=== PATIENT | male | born 1965 | race Caucasian/White ===

== ENCOUNTER 2020-04-19 17:49 | Emergency (ER) | payer SELFPAY ==
[~2020-04-19] VITALS: Ht 175.2 cm; Wt 86.2 kg
[~2020-04-19 17:49] MED LIST: COMBIVENT1 ARO IH
[2020-04-19] MEDS ORDERED: SEPTDS PO (21:18)
[2020-04-19] MEDS ORDERED: KEFLEX500 M1 PO (21:18)
== END 2020-04-19 21:53 | disposition home or self-care (01) ==
LOC: ED 17:49
DX: S62.631A Displaced fracture of distal phalanx of left index finger, initial encounter for closed fracture (principal); X58.XXXA Exposure to other specified factors, initial encounter; Y93.89 Activity, other specified; Y92.89 Other specified places as the place of occurrence of the external cause; Y99.8 Other external cause status

== ENCOUNTER 2023-07-10 23:43 | Emergency (ER) | payer BC ==
[~2023-07-10] VITALS: Ht 175.2 cm; Wt 81.6 kg
[~2023-07-10 23:43] MED LIST changes: +KEFLEX500 M1 PO; +SEPTDS PO
== END 2023-07-11 08:13 | disposition short-term general hospital (02) ==
LOC: ED 23:43
DX: S62.632A Displaced fracture of distal phalanx of right middle finger, initial encounter for closed fracture (principal); Z88.8 Allergy status to other drugs, medicaments and biological substances; Z79.2 Long term (current) use of antibiotics; W54.0XXA Bitten by dog, initial encounter; Y93.K1 Activity, walking an animal; Y92.89 Other specified places as the place of occurrence of the external cause; Y99.8 Other external cause status